=== PATIENT | male | born 1985 | race Two or more races ===

== ENCOUNTER 2024-09-30 14:31 | Inpatient (IN) | payer BC, OTHER ==
[~2024-09-30] VITALS: Ht 188 cm; Wt 172.0 kg
[2024-09-30] VITALS (27 sets, daily range): BP systolic 110–139; BP diastolic 59–89; PULSE 71–99; RESP 14–22; TEMP 97.6; O2SAT 90–98
[2024-09-30] MEDS: CLOPIDOGREL BISULFATE 75 MG TAB ONE (14:41)
[2024-09-30] MEDS: HEPARIN SODIUM (PORCINE) 5000 UNITS/ML 1ML VIAL ONE ×3 (14:41→15:43)
[2024-09-30] MEDS: CLOPIDOGREL BISULFATE 75 MG TAB PO ONE ×2 (14:44→14:45)
[2024-09-30] MEDS: HEPARIN SODIUM (PORCINE) 5000 UNITS/ML 1ML VIAL IV ONE ×2 (14:44→14:45)
[2024-09-30] MEDS: ONDANSETRON HCL 4 MG/2 ML VIAL IV ONE (14:45)
[2024-09-30] MEDS: ANGIOMAX 250 MG VIAL IV ONE (14:45)
[2024-09-30] MEDS: NITROGLYCERIN 2% OINT 1GM PKG TD ONE (14:45)
[2024-09-30] MEDS: VERAPAMIL 2.5MG/ML INJ 2ML VIAL IV ONE (14:45)
[2024-09-30] MEDS: MIDAZOLAM HCL 2MG/2ML 2ml VIAL (1mg/ml) ONE (14:46)
[2024-09-30] MEDS: LIDOCAINE 2%HCL (LOCAL ANESTH.) INJ 20ML MDV ONE (14:46)
[2024-09-30] MEDS: IODIXANOL 320MG/ML 100ML BTL IV ONE ×3 (14:46→16:06)
[2024-09-30] MEDS: SODIUM CHL 0.9% 50 ML ONE (14:46)
[2024-09-30] MEDS: fentaNYL CITRATE 100 MCG/2 ML VL ONE (14:46)
--- NOTE | 2024-09-30 14:48 | DVHINCON2 ---
Date Seen: Sep 30, 2024 Referring Physician Rosalinda Lopez MD Reason for Consultation STEMI History of Present Illness This is a 39-year-old man who presented to the emergency room via EMS with a chief complaint of chest pain since 1000 today. The patient reports he was working on his desk when he developed a sudden onset of chest pain described as substernal, nonradiating, pressure-like, and associated with diaphoresis for which he decided to present to a local urgent care clinic where EMS was called. Denies shortness of breath, palpitations, or syncopal events. EN route to the hospital, he was medicated with NTG SL 0.4 mg x4 and ASA 324 mg p.o. x 1 with successful relief of symptoms from a chest pain rated as 8/10 to 2/10. He underwent a 12 lead electrocardiogram revealing anterolateral ST elevation myocardial infarction with reciprocal changes to inferior leads. Denies any past medical history. Denies family history for cardiovascular disease. Only admits to occasional alcohol use. Past Medical History Past medical history reviewed. No other significant than mentioned above. Past Surgical History Past surgical history reviewed. No other significant than mentioned above. Family History Family history reviewed. Not significant for cardiovascular disease. Social History Denies the use of illicit drugs or tobacco use. Admits to occasional alcohol use. Home Meds Denies any home medications. Review of Systems Constitutional: No symptom reported Ears, Nose, & Throat: No symptom reported Eyes: No symptom reported Neurological: No symptoms reported Pulmonary/Respiratory: No symptom reported Cardiovascular: Chest pain, diaphoresis Gastrointestinal: No symptom reported Genitourinary: No symptom reported Musculoskeletal: No symptom reported Skin: No symptom reported Psychiatric: No symptom reported Endocrine: No symptom reported Hemotologic/Lymphatic: No symptom reported Vital Signs Vital Signs Date Time Temp Pulse Resp B/P (MAP) Pulse Ox O2 Delivery O2 Flow Rate FiO2 09/30/24 14:35 82 Physical Exam General Appearance: Cooperative. Well developed. Obese. In no acute distress Head Exam: Normal inspection Neck Exam: Normal inspection. Non-tender. Normal alignment Pulmonary/Respiratory: Chest non-tender. Clear bilateral breath sounds Cardiovascular/Chest: Regular rate and rhythm. S1, S2. Anterolateral STEMI. N o murmurs. No JVD. Peripheral Pulses: 2+ Radial (R). 2+ Radial (L). 2+ Pedal (R). 2+ Pedal (L) Abdominal Exam: Normal bowel sounds. Soft. Nontender. No hepatospenomegaly. No masses Ankle Exam: Negative ankle edema Lower extremities: Negative lower extremity edema Neuro/Mental Status: A&O x4. Coherent Thoughts/Psych: Normal thought pattern. Appropriate mood and affect. Good judgement and insight Appearance: In no acute distress Skin Exam: Normal inspection. Normal color. Warm. Dry Assessment Acute anterolateral ST-elevation myocardial infarction Rule out structural heart disease Obesity Plan/Recommendation (Dr. Lieberman) Patient with chest pain presents with an acute ST-elevation myocardial infarction with code STEMI being activated and environmental economist accounts payable representative notified. He is scheduled for emergent cardiac catheterization and coronary angiogram. All risks and benefits of the procedure were discussed with the patient who agrees to proceed with intervention. He was medicated with NTG and ASA 324 mg EN route to the hospital & loaded with heparin IV and clopidogrel 300 mg. Obtain transthoracic echocardiogram at first available. Blood work and chest x- ray pending at this time. Thank you for allowing us to participate in this patient's care. Please call if you have any questions or concerns. Critical care time: 40 minutes. This medical document was created using an electronic medical record system with voice recognition software and computerized dictation system. Although this document has been carefully reviewed, there might still be some phonetic and typographical errors. Occasional wrong-word or ``sound-alike substitutions may have occurred due to the inherent limitations of voice recognition software. These areas are purely typographical due to imperfections of the software programs and do not reflect any compromise in the patient's medical care. Please read the chart carefully and recognize, using context, where these substitutions have occurred. Plan discussed with: Patient, Other NYHA Physical activity limitations: NA Date of Service: Sep 30, 2024 Billing Provider: SUMI LIEBERMAN Sr., MD Cardiology Common Codes: 25228-ZACRGUCR CARE 30-74 MIN ENZO CORTES [facility] Sep 30, 2024 14:48
--- NOTE | 2024-09-30 14:51 | ED.PDOC ---
HPI Comments 39-year-old male with no significant past medical history brought in by EMS complaining of chest pain. Patient states he woke up this morning with nausea, generalized weakness and 8/10 chest pain. Patient presented to Urgent Care, then 911 was called. On arrival by EMS ST-elevation was noted on 12 lead EKG. Patient was medicated with aspirin 325 mg p.o. and sublingual nitroglycerin x2 improvement of his chest pain to 2/10. He denies any shortness a breath. Chief Complaint: STEMI Time Seen by MD: 14:39 Allergies: Coded Allergies: NO KNOWN ALLERGIES (Unverified , 09/30/24) Past Medical History PAST MEDICAL HISTORY: Denies Surgical History: Denies all surgeries Family History Family History: No family hx of Heart sarah Social History Smoker: Non-Smoker Alcohol: Occasionally Drugs: Denies Drug Use Lives In: Home All Other Systems: Reviewed and Negative (Comprehensive systems review obtained and negative except for what is stated in the HPI.) Physical Exam General Appearance: No Apparent Distress, Obese HEENT: Other (Pulses symmetric. Moist mucous membranes.) Neck: Full Range of Motion, Normal Inspection Respiratory: Lungs Clear, No Accessory Muscle Use, No Respiratory Distress, Normal Breath Sounds Cardiovascular: No Edema, No JVD, Regular Rate/Rhythm Breast Exam: Deferred Gastrointestinal: Non Tender, Soft Genitalia: Deferred Pelvic: Deferred Rectal: Deferred Extremities: Normal inspection, Normal range of motion, Non-tender, No pedal edema Neurologic: Alert (Oriented x4), Normal Affect, Normal Mood, Other (Moves all extremities. No gross focal deficit.) Cerebellar Function: NOT DONE Reflexes: NOT DONE Skin: Dry, Pallor, Warm Lymphatic: NOT DONE EKG EKG : Comments Sinus rhythm, rate 82, normal intervals, normal axis, ST elevation in leads 1, 2, aVL, V4 through V6 consistent with acute ST-elevation DE Was a procedure done? Was a procedure done?: No CP Differential Dx Differential Diagnosis: Angina, Heart Failure, DE, Pulmonary Embolus Differential Diagnosis: CHF Differential Diagnosis: Aortic dissection, Chest Wall Pain, Esophageal reflux/spasm, Gastritis, Pericarditis, Pneumonia, Pneumothorax X-Ray, Labs, Meds, VS Vital Signs Date Time Temp Pulse Resp B/P (MAP) Pulse Ox O2 Delivery O2 Flow Rate FiO2 09/30/24 17:00 86 19 129/89 (102) 93 09/30/24 16:30 99 14 110/59 (76) 92 09/30/24 14:45 118/91 09/30/24 14:35 82 09/30/24 14:31 74 16 96 Room Air* 0 21 09/30/24 14:31 98.4 74 16 125/70 (88) 96 09/30/24 14:31 98.4 74 16 125/70 (88) 96 98.4 Lab Test 09/30/24 14:40 Range/Units White Blood Count 12.3 H 4.4-10.8 10^3/uL Red Blood Count 5.26 4.5-5.90 10^6/uL Hemoglobin 15.7 13.5-17.5 g/dL Hematocrit 46.3 41.0-53.0 % Mean Corpuscular Volume 88.1 80.0-100.0 fL Mean Corpuscular Hemoglobin 29.8 28.0-32.0 pg Mean Corpuscular Hemoglobin Concent 33.8 32.0-36.0 g/dL Red Cell Distribution Width 13.2 11.8-14.3 % Platelet Count 305 140-450 10^3/uL Mean Platelet Volume 9.3 6.9-10.8 fL Neutrophils (%) (Auto) 85.1 H 37.0-80.0 % Lymphocytes (%) (Auto) 10.6 10.0-50.0 % Monocytes (%) (Auto) 3.8 0.0-12.0 % Eosinophils (%) (Auto) 0.1 0.0-7.0 % Basophils (%) (Auto) 0.4 0.0-2.0 % Neutrophils # (Auto) 10.5 H 1.6-8.6 10 ^3/uL Lymphocytes # (Auto) 1.3 0.4-5.4 10 ^3/uL Monocytes # (Auto) 0.5 0-1.3 10 ^3/uL Eosinophils # (Auto) 0 0-0.8 10 ^3/uL Basophils # (Auto) 0 0-0.2 10 ^3/uL Nucleated Red Blood Cells 0.1 % Prothrombin Time 11.2 9.3-11.8 sec Prothrombin Time INR 1.06 0.9-1.15 Activated Partial Thromboplast Time 25.1 24.5-34.5 SEC Sodium Level 139 136-145 mmol/L Potassium Level 4.2 3.5-5.1 mmol/L Chloride Level 105 98-107 mmol/L Carbon Dioxide Level 25 20-31 mmol/L Anion Gap 9 5-15 Blood Urea Nitrogen 11 9-23 mg/dL Creatinine 1.19 0.700-1.30 mg/dL Glomerular Filtration Rate Calc 81 >90 mL/min BUN/Creatinine Ratio 9.2 L 10.0-20.0 Serum Glucose 132 H 74-106 mg/dL Calcium Level 10.2 8.7-10.4 mg/dL Magnesium Level 1.9 1.6-2.6 mg/dL Total Bilirubin 0.6 0.2-1.0 mg/dL Aspartate Amino Transferase (AST) 46 H 13-40 U/L Alanine Aminotransferase (ALT) 39 7-40 U/L Alkaline Phosphatase 45 L 46-116 U/L Troponin I High Sensitivity 711 *H </=54 ng/L B-Type Natriuretic Peptide 22.31 0-100 pg/mL Total Protein 7.6 5.7-8.2 g/dL Albumin 4.5 3.2-4.8 g/dL Triglycerides Level 92 < 150 mg/dL Cholesterol Level 125 < 200 mg/dL LDL Cholesterol 95 < 100 mg/dL HDL Cholesterol 25 L 40-59 mg/dL Current Medications Medications (Trade) Dose Ordered Sig/Alycia Route Start Time Stop Time Status Last Admin Clopidogrel Bisulfate (Plavix) 300 mg ONCE ONCE PO 09/30/24 14:41 09/30/24 15:14 DC 09/30/24 14:44 Heparin Sodium (Porcine) 5,000 units ONCE ONCE IV 09/30/24 14:41 09/30/24 15:14 DC 09/30/24 14:44 Sodium Chloride 1,000 ml @ 75 mls/hr [id number] ONCE IV 09/30/24 16:30 10/01/24 05:49 09/30/24 16:30 X-Ray, Labs, Meds, VS Comment 39-year-old male with no significant past medical history complaining of chest pain, found to have ST-elevation DE on EKG Vitals unremarkable Exam unremarkable Rhythm strip independently interpreted by me sinus rhythm, rate 82, no ectopy. CBC, CMP, coag panel, BNP and serial troponins pending Chest x-ray pending Patient treated with the following in the ED: Nitro-Bid to chest wall, IV heparin started I discussed the case with Dr. Lieberman, who reviewed the EKG. He agreed findings are consistent with STEMI. laboratory equipment installer was activated. On re-evaluation, patient notes his chest pain is 1-2/10. Vitals are stable. Patient will be transferred to cardiac cath technician, then will be admitted. Time of 1ST Reevaluation: 14:49 Reevaluation 1ST: Improved Patient Education/Counseling: Diagnosis, Treatment, Need For Follow Up Family Education/Counseling: No Family Present Departure 1 Departure Time of Disposition: 14:50 Impression: Primary Impression: ST elevation DE (STEMI) Qualified Codes: I21.21 - ST elevation (STEMI) myocardial infarction involving left circumflex coronary artery Disposition: ADMITTED INPATIENT Admit to: [facility] Condition: Serious Critical Care Note Critical Care Time?: Yes (35 min-critical care time only) Critical care comment: Critical care time including multiple bedside re-evaluations, review of lab and imaging studies, and discussion of the case with the consulting and admitting providers. Patient is high risk for hemodynamic decompensation. Stability Stability form required: No Heart Score Heart Score: Heart Score Response (Comments) Value History Highly Suspicious [address]-Deviation 2 Age <45 0 Risk Factors No known risk factors 0 Troponin >3 x's Normal limit 2 Total 6 HYUN LUX MD Sep 30, 2024 14:51
[2024-09-30 15:13] LABS: Basophils # (auto) 0 10 ^3/uL (0-0.2); Basophils % (auto) 0.4 % (0.0-2.0); Eosinophils # (auto) 0 10 ^3/uL (0-0.8); Eosinophils % (auto) 0.1 % (0.0-7.0); Hematocrit 46.3 % (41.0-53.0); Hemoglobin 15.7 g/dL (13.5-17.5); Lymphocytes # (auto) 1.3 10 ^3/uL (0.4-5.4); Lymphocytes % (auto) 10.6 % (10.0-50.0); Mean Corpuscular Hemoglobin 29.8 pg (28.0-32.0); Mean Corpuscular Hgb Conc. 33.8 g/dL (32.0-36.0); Mean Corpuscular Volume 88.1 fL (80.0-100.0); Monocytes # (auto) 0.5 10 ^3/uL (0-1.3); Monocytes % (auto) 3.8 % (0.0-12.0); Neutrophils # (auto) 10.5 10 ^3/uL (1.6-8.6); Neutrophils % (auto) 85.1 % (37.0-80.0); Nucleated Red Blood Cells % 0.1 %; Platelet Count (auto) 305 10^3/uL (140-450); Red Blood Cells 5.26 10^6/uL (4.5-5.90); Red Cell Distribution Width 13.2 % (11.8-14.3); White Blood Cell 12.3 10^3/uL (4.4-10.8)
[2024-09-30 15:21] LABS: Alanine Aminotransferase 39 U/L (7-40); Albumin 4.5 g/dL (3.2-4.8); Anion Gap 9 (5-15); BUN/Creatinine Ratio 9.2 (10.0-20.0); Blood Urea Nitrogen 11 mg/dL (9-23); Calcium 10.2 mg/dL (8.7-10.4); Carbon Dioxide 25 mmol/L (20-31); Chloride 105 mmol/L (98-107); Magnesium 1.9 mg/dL (1.6-2.6); Potassium 4.2 mmol/L (3.5-5.1); Sodium 139 mmol/L (136-145)
[2024-09-30 15:22] LABS: Bilirubin, Total 0.6 mg/dL (0.2-1.0); Total Protein 7.6 g/dL (5.7-8.2)
[2024-09-30] MEDS: HYDROmorphone HCL 2 MG/ML VL/or syr ONE (15:24)
[2024-09-30 15:30] LABS: Alkaline Phosphatase 45 U/L (46-116); Aspartate Aminotransferase 46 U/L (13-40); Glucose 132 mg/dL (74-106)
[2024-09-30 15:32] LABS: INR 1.06 (0.9-1.15); Partial Thromboplastin Time 25.1 SEC (24.5-34.5); Prothrombin Time 11.2 sec (9.3-11.8)
[2024-09-30] MEDS: EPTIFIBATIDE DRIP(0.75MG/ML) 100 ML IV ONE ×3 (15:36→19:50)
[2024-09-30 15:55] LABS: Triglycerides 92 mg/dL (< 150)
[2024-09-30 15:56] LABS: LDL Cholesterol 95 mg/dL (< 100)
[2024-09-30 15:57] LABS: Cholesterol 125 mg/dL (< 200)
[2024-09-30 16:08] LABS: HDL Cholesterol 25 mg/dL (40-59)
[2024-09-30] MEDS ORDERED: MORPHINE SULFATE INJ 2 MG/ml SYRG IV PRN ×2 (16:30→17:15)
[2024-09-30] MEDS: SODIUM CHLORIDE 0.9% 1,000 ML IV ONE (16:30)
[2024-09-30] MEDS ORDERED: NITROGLYCERIN 0.4 MG SL TAB SL PRN ×3 (16:30→17:15)
--- NOTE | 2024-09-30 16:53 | DVHOP2 ---
Operative Report - 2 Report Details Date: 09/30/24 Preop Diagnosis: Acute ST-elevation myocardial infarction Postop Diagnosis: Acute ST-elevation myocardial infarction. Successful angioplasty, thrombectomy and stenting of the LAD. Surgeon: Sumi Lieberman MD Anesthesiologist: Conscious sedation Anesthesia: Mac, Local Consent: The patient was informed of the risks and benefits of the procedure. These include but are not limited to complications of anesthesia, postoperative infection, incomplete relief of symptoms, recurrence of symptoms, damage to blood vessels, nerves and tendons, deep venous thrombosis, pulmonary embolism and possible need for repeat surgery in the future. Complications: No complications Estimated Blood Loss: 50 cc Findings: Significant thrombosis of left anterior descending coronary artery Indications for Surgery: Acute ST-elevation myocardial infarction Name of Procedure Performed Left heart catheterization, bilateral cine coronary angiography and left v entriculography. Thrombectomy of left anterior descending coronary artery. Intravascular ultrasound evaluation of left anterior descending coronary artery. Thrombectomy of diagonal artery. PTCA and stenting of left anterior descending coronary artery. Procedure Details Procedure Details: Prior local anesthesia with 2% lidocaine to the right wrist and under ultrasound guidance along with fluoroscopic guidance we accessed the radial artery and placed a six Turkish sheath subsequent to which we then placed a three five EBU guide into the left ventricle for ventriculography and acquisition of pressures. We performed angiographic evaluation of the left main and RCA. Hemodynamics: Aortic blood pressure was 110/70. End-diastolic pressure was 18. There was no gradient across the aortic valve on pullback. Coronary anatomy: Angiographic evaluation of the RCA showed no significant lesions. PDA and posterolateral branches were normal. Left main was large and normal. The circ umflex is large with two marginals free of significant disease. Is codominant and normal the LAD was found to be occluded in its proximal segment several mm from the origin and edge of the left main. We proceeded to use the same three five EBU followed by placement of a Specter wire across the area of stenosis in the left anterior descending coronary artery. The wire was preferentially in the diagonal and we noticed a significant amount of thrombus present. We made several runs removing large amounts of thrombus re-establishing flow into the diagonal artery and noticed severe thrombus also adjacent in the left anterior descending. We redirected our wire into the left anterior descending coronary artery and we then took two more passes with the penumbra thrombectomy device. We noticed a significant dissection in the left anterior descending coronary artery with a ruptured plaque distal to the large diagonal. It was normal with the to state that the left anterior descending was occluded to the proximal segment from thrombus extending from the mid LAD and diagonal RV to the proximal segment. We then performed an intravascular ultrasound evaluation of the left anterior descending coronary artery noted the segment of ruptured plaque and significant plaque bu rden within the LAD at its mid and proximal portions. We then placed a three 5 x 22 mm stent into the LAD just distal to the diagonal bifurcation. We found that there was plaque shift distal to the stent and we placed a 3-0 by 8 mm stent overlapping the proximal stent. We post dilated with a same 3-0 balloon at higher atmospheres overlapping the two stents segments. We then took a four 0 x 15 mm noncompliant balloon and dilated proximal to the distal stent at approximately 10 atmospheres. Into the proximal stent up to 15 atmospheres. There was excellent antegrade flow without thrombus formation or dissection. CHRIS two flow is noted postprocedure. Preprocedure there was CHRIS one flow noted. The diagonals improved to acquired improved flow as well. In tegrilin was continued in its use. Ventriculography was performed in the [place] projection. EF was about 25% with an enlarged left ventricle and anterior hypokinesis. Catheter stimulation upon the septum cause of ventricular fibrillation. The patient had DC cardioversion x1 this was uneventful. Impression: Successful PTCA and stenting in the patient with single-vessel disease. Successful thrombectomy and intravascular ultrasound evaluation of left anterior descending and diagonal vasculature. Decreased left ventricular ejection fraction. Elevated left ventricular end-diastolic pressure at rest. Recommendations: Continue dual antiplatelet therapy. Lipid-lowering therapy. ELVER inhibitors. Beta blockers. Dietary risk factor modification. We will cont inue with Integrilin for another 8 hours. Condition Good Disposition Still a Patient Date of Service: Sep 30, 2024 Billing Provider: SUMI LIEBERMAN Sr., MD Cardiology Common Codes: 06911-[id number] INP/OBS CARE (High) Cardiology Procedure Codes: 33869 -PTCA W/STENT PLACEMENT, 23270-APSA FOR STEMI W/STENT, 23228-ON CARDIOVERSION, 88864-VWLJ HEART CATH W/INTRA INJ, 40668-V/R & L HEART CATH FOR LVG SUMI LIEBERMAN Sr., MD Sep 30, 2024 16:53
[2024-09-30] MEDS ORDERED: MORPHINE SULFATE 4 MG/ML SYR/VIAL IV PRN (17:15)
[2024-09-30] MEDS ORDERED: ONDANSETRON HCL 4 MG/2 ML VIAL IV PRN (17:15)
[2024-09-30] MEDS ORDERED: ACETAMINOPHEN 325 MG TAB PO PRN (17:15)
--- NOTE | 2024-09-30 17:43 | DVHHP2 ---
History of Present Illness Reason for Visit: STEMI History of Present Illness Dre Khalil is a 39-year-old male with no past medical history who presents to the ED with a STEMI. Patient reports that he was at work at 10:00 a.m. this morning felt very diaphoretic took some water drove home about an hour away and try to get some sleep however the pain was still persisting. He states that he and his went to [facility] they did an EKG and found that he had a STEMI call paramedics they brought him to [facility] and was also found to have a STEMI in the ED. Patient was taken to cath lab radiological technologist and 2 stents were placed in the LAD. Patient reports that in 2017 he tore his calf muscle and developed a right DVT was on Eliquis for 9 months and then got lab draws every month along with ultrasound, then his primary stopped his medications as patient stated that primary stated he no longer needed them. Patient denies any fevers, chills, recent sick contacts, recent trauma or injury, denies illicit drug use, smoking, nausea, vomiting, diarrhea, lightheadedness, and dizziness. Past Medical History Right lower extremity DVT Past Surgical History: None Family History: Hypertension, Other (Mom with hypertension) Smoke: No ALCOHOL: occassional Drugs: None Lives: with Family Domestic Violence: Neg Review of Systems Constitutional: No: Fever, Chills, Sweats, Weakness, Malaise, Other Eyes: No: Pain, Vision change, Conjunctivae inflammation, Eyelid inflammation, Other, Redness ENT: No: Ear pain, Ear discharge, Nose pain, Nose discharge, Nose congestion, Mouth pain, Mouth swelling, Throat pain, Throat swelling, Other Respiratory: Cough; No: Dry, Shortness of breath, SOB with excertion, Wheezing, Hemoptysis, Pleuritic Pain, Sputum, Wheezing, Other Cardiovascular: Chest Pain; No: Palpitations, Orthopnea, Paroxysmal Noc. Dyspnea, Edema, Lt Headedness, Other Gastrointestinal: No: Nausea, Vomiting, Abdominal Pain, Diarrhea, Constipation, Melena, Hematochezia, Other Genitourinary: No Dysuria, No Frequency, No Incontinence, No Hematuria, No Retention, No Other Musculoskeletal: No: other, neck pain, shoulder pain, arm pain, back pain, hand pain, leg pain, foot pain Skin: No: Rash, Lesions, Jaundice, Bruising, Other Neurological: No: Weakness, Numbness, Incoordination, Change in speech, Confusion, Seizures, Other Allergies: Coded Allergies: NO KNOWN ALLERGIES (Unverified , 09/30/24) Medications Current Medications Medications Dose Ordered Sig/Alycia Route Start Time Stop Time Status Last Admin Dose Admin Nitroglycerin 0.4 mg Q5MINP PRN SL 09/30/24 16:30 Morphine Sulfate 2 mg Q30M PRN IV 09/30/24 16:30 Aspirin 81 mg DAILY PO 10/01/24 10:00 UNV Clopidogrel Bisulfate 75 mg DAILY PO 10/01/24 10:00 UNV Metoprolol Tartrate 12.5 mg BID PO 09/30/24 22:00 UNV Morphine Sulfate 2 mg Q30MP PRN IV 09/30/24 17:15 UNV Acetaminophen 650 mg Q6HP PRN PO 09/30/24 17:15 UNV Nitroglycerin 0.4 mg Q5MINP PRN SL 09/30/24 17:15 UNV Ondansetron HCl 4 mg Q4HP PRN IV 09/30/24 17:15 UNV Nitroglycerin 0.4 mg Q5MINP PRN SL 09/30/24 17:15 UNV Morphine Sulfate 2 mg Q30M PRN IV 09/30/24 17:15 UNV Spironolactone 25 mg DAILY PO 10/01/24 10:00 UNV Sacubitril/ Valsartan 0.5 tab BID PO 09/30/24 22:00 UNV Exam Vital Signs Vital Signs Date Time Temp Pulse Resp B/P (MAP) Pulse Ox O2 Delivery O2 Flow Rate FiO2 09/30/24 14:35 82 09/30/24 14:31 16 96 Room Air* 0 21 09/30/24 14:31 98.4 125/70 (88) General Appearance: Alert, Oriented X3, Cooperative, No acute distress HEENT: Atraumatic, PERRLA, EOMI, Mucous membr. moist/pink Respiratory: Clear to auscultation, Normal air movement Cardiovascular: Normal S1, Normal S2, No murmurs Abdominal: Soft, No tenderness Extremities: No clubbing, No cyanosis, No edema, Normal pulses, No tenderness/swelling Skin: No rashes, No breakdown, No significant lesion Neuro: Normal speech, Strength at 5/5 X4 ext, Normal tone, Sensation intact Psych/Mental Status: Mental status NL, Mood NL Labs/Xrays Labs Test 09/30/24 14:40 Range/Units White Blood Count 12.3 H 4.4-10.8 10^3/uL Red Blood Count 5.26 4.5-5.90 10^6/uL Hemoglobin 15.7 13.5-17.5 g/dL Hematocrit 46.3 41.0-53.0 % Mean Corpuscular Volume 88.1 80.0-100.0 fL Mean Corpuscular Hemoglobin 29.8 28.0-32.0 pg Mean Corpuscular Hemoglobin Concent 33.8 32.0-36.0 g/dL Red Cell Distribution Width 13.2 11.8-14.3 % Platelet Count 305 140-450 10^3/uL Mean Platelet Volume 9.3 6.9-10.8 fL Neutrophils (%) (Auto) 85.1 H 37.0-80.0 % Lymphocytes (%) (Auto) 10.6 10.0-50.0 % Monocytes (%) (Auto) 3.8 0.0-12.0 % Eosinophils (%) (Auto) 0.1 0.0-7.0 % Basophils (%) (Auto) 0.4 0.0-2.0 % Neutrophils # (Auto) 10.5 H 1.6-8.6 10 ^3/uL Lymphocytes # (Auto) 1.3 0.4-5.4 10 ^3/uL Monocytes # (Auto) 0.5 0-1.3 10 ^3/uL Eosinophils # (Auto) 0 0-0.8 10 ^3/uL Basophils # (Auto) 0 0-0.2 10 ^3/uL Nucleated Red Blood Cells 0.1 % Prothrombin Time 11.2 9.3-11.8 sec Prothrombin Time INR 1.06 0.9-1.15 Activated Partial Thromboplast Time 25.1 24.5-34.5 SEC Sodium Level 139 136-145 mmol/L Potassium Level 4.2 3.5-5.1 mmol/L Chloride Level 105 98-107 mmol/L Carbon Dioxide Level 25 20-31 mmol/L Anion Gap 9 5-15 Blood Urea Nitrogen 11 9-23 mg/dL Creatinine 1.19 0.700-1.30 mg/dL Glomerular Filtration Rate Calc 81 >90 mL/min BUN/Creatinine Ratio 9.2 L 10.0-20.0 Serum Glucose 132 H 74-106 mg/dL Calcium Level 10.2 8.7-10.4 mg/dL Magnesium Level 1.9 1.6-2.6 mg/dL Total Bilirubin 0.6 0.2-1.0 mg/dL Aspartate Amino Transferase (AST) 46 H 13-40 U/L Alanine Aminotransferase (ALT) 39 7-40 U/L Alkaline Phosphatase 45 L 46-116 U/L Troponin I High Sensitivity 711 *H </=54 ng/L B-Type Natriuretic Peptide 22.31 0-100 pg/mL Total Protein 7.6 5.7-8.2 g/dL Albumin 4.5 3.2-4.8 g/dL Triglycerides Level 92 < 150 mg/dL Cholesterol Level 125 < 200 mg/dL LDL Cholesterol 95 < 100 mg/dL HDL Cholesterol 25 L 40-59 mg/dL Assessment/Plan Assessment/Plan Assessment/Plan: STEMI Leukocytosis Integrilin drip EKG Cardiology following EKG in a.m. Chest x-ray in a.m. Labs Labs in a.m. Troponin Albumin BNP Lipid panel PT/PTT IV antibiotics - ceftriaxone Spironolactone Plavix Aspirin Entresto Metoprolol Pain management Antiemetics Heparin History of right lower extremity DVT Monitor Morbid Obesity Discussed with patient lifestyle modifications, diet, and exercise FEN/PPX cardiac diet hl DVT prophylaxis - patient on Integrilin drip PD prophylaxis not indicated no history of GERD or GI bleed No home medications to reconcile discussed plan of care with patient, and nurse Admit to ICU Plan discussed with: Patient, Spouse My Orders Orders - CAYLA RANDLE Procedure Category Date Status Time Admit ADMIT 09/30/24 Transmitted 17:10 Code Status CODE 09/30/24 Transmitted 17:10 Vital Signs TERRI 09/30/24 In Process 17:10 Terminal Gauger Supervisor TERRI 09/30/24 In Process 17:10 Morphine Sulfate PHA 09/30/24 Logged Injection 17:15 Acetaminophen Tablet PHA 09/30/24 Logged (Tylenol Tablet) 17:15 Complete Blood Count LAB 10/01/24 Verified 04:00 Comprehensive LAB 10/01/24 Verified Metabolic Panel 04:00 Chest Xray 1 View XY 10/01/24 Logged 06:00 Nitroglycerin PHA 09/30/24 Logged Sublingual (Ntrostat 17:15 Ondansetron Hcl PHA 09/30/24 Logged (Zofran) 17:15 Electrocardigram EKG 10/01/24 Logged 04:00 Troponin-I Hs LAB 09/30/24 Logged 17:10 Cardiac TERRI 09/30/24 In Process Rehabilitation - Outpa Nitroglycerin PHA 09/30/24 Logged Sublingual (Ntrostat 17:15 Morphine Sulfate PHA 09/30/24 Logged Injection 17:15 Oxygen By Nasal RT 09/30/24 Transmitted Cannula 17:10 Date of Service: Sep 30, 2024 Billing Provider: CAYLA RANDLE Common Visit Codes: [id number] INP/OBS CARE (HIGH) CAYLA RANDLE Sep 30, 2024 17:43
[2024-09-30 19:33] LABS: Triglycerides 131 mg/dL (< 150)
[2024-09-30 19:35] LABS: Cholesterol 131 mg/dL (< 200)
[2024-09-30 19:38] LABS: HDL Cholesterol 26 mg/dL (40-59); LDL Cholesterol 100 mg/dL (< 100)
--- NOTE | 2024-09-30 20:02 | DVH ---
CHEST RADIOGRAPH Indication: cp Technique: Single frontal view of the chest was obtained Comparison: None FINDINGS: Lines and Tubes: No catheter is visualized. Lungs: No focal consolidation. Pleura: No effusion. No pneumothorax. Cardiomediastinal contours: Unremarkable Bones: No acute osseous abnormality. IMPRESSION: 1. No acute cardiopulmonary disease. 2. No catheter is visualized. 3. No pneumothorax visualized.
[2024-09-30] MEDS: cefTRIAXone 1GM/50ML D5W 50 ML IV ONE (20:50)
[2024-09-30] MEDS: SACUBITRIL-VALSARTAN 24mg/26mg TAB PO SCH (21:54)
[2024-09-30] MEDS: METOPROLOL TARTRATE 25 MG TAB PO SCH (21:54)
[2024-10-01] VITALS (34 sets, daily range): BP systolic 103–160; BP diastolic 7–91; PULSE 66–98; RESP 15–20; TEMP 98.1–99.2; O2SAT 84–99
[2024-10-01 00:44] LABS: Chloride 105 mmol/L (98-107); Potassium 4.3 mmol/L (3.5-5.1); Sodium 137 mmol/L (136-145)
[2024-10-01 00:45] LABS: Anion Gap 10 (5-15); Carbon Dioxide 22 mmol/L (20-31)
[2024-10-01 00:50] LABS: BUN/Creatinine Ratio 12.1 (10.0-20.0); Blood Urea Nitrogen 12 mg/dL (9-23)
[2024-10-01 00:57] LABS: Glucose 140 mg/dL (74-106)
[2024-10-01 03:59] LABS: Basophils # (auto) 0.1 10 ^3/uL (0-0.2); Basophils % (auto) 0.4 % (0.0-2.0); Eosinophils # (auto) 0 10 ^3/uL (0-0.8); Hematocrit 43.9 % (41.0-53.0); Lymphocytes # (auto) 1.5 10 ^3/uL (0.4-5.4); Lymphocytes % (auto) 11.3 % (10.0-50.0); Mean Corpuscular Hemoglobin 29.8 pg (28.0-32.0); Mean Corpuscular Hgb Conc. 34.1 g/dL (32.0-36.0); Mean Corpuscular Volume 87.3 fL (80.0-100.0); Monocytes % (auto) 7.4 % (0.0-12.0); Neutrophils # (auto) 10.6 10 ^3/uL (1.6-8.6); Neutrophils % (auto) 80.9 % (37.0-80.0); Platelet Count (auto) 249 10^3/uL (140-450); Red Blood Cells 5.03 10^6/uL (4.5-5.90); White Blood Cell 13.1 10^3/uL (4.4-10.8)
[2024-10-01 04:18] LABS: Alanine Aminotransferase 106 U/L (7-40); Albumin 4.1 g/dL (3.2-4.8); Alkaline Phosphatase 41 U/L (46-116); Anion Gap 9 (5-15); Aspartate Aminotransferase 639 U/L (13-40); Bilirubin, Total 0.8 mg/dL (0.2-1.0); Blood Urea Nitrogen 11 mg/dL (9-23); Calcium 9.5 mg/dL (8.7-10.4); Carbon Dioxide 24 mmol/L (20-31); Chloride 105 mmol/L (98-107); Glucose 125 mg/dL (74-106); Potassium 4.1 mmol/L (3.5-5.1); Sodium 138 mmol/L (136-145); Total Protein 7.1 g/dL (5.7-8.2)
--- NOTE | 2024-10-01 04:30 | DVH ---
CHEST RADIOGRAPH Indication: Chest Pain Technique: Single frontal view of the chest was obtained Comparison: XY CHEST PORTABLE on DOS: 09/30/24 FINDINGS: Lines and Tubes: None Lungs: No focal consolidation. Pleura: No effusion. No pneumothorax. Cardiomediastinal contours: Unremarkable Bones: No acute osseous abnormality. IMPRESSION: 1. No acute cardiopulmonary disease.
[2024-10-01] MEDS: ASPirin 81 mg TAB PO SCH (09:03)
[2024-10-01] MEDS: cefTRIAXone 1GM/50ML D5W 50 ML IV SCH (09:03)
[2024-10-01] MEDS: SPIRONOLACTONE 25 MG TAB PO SCH (09:03)
[2024-10-01] MEDS: CLOPIDOGREL BISULFATE 75 MG TAB PO SCH (09:06)
--- NOTE | 2024-10-01 09:10 | DVHPN2 ---
Progress Note Date Seen: Oct 01, 2024 Medical Necessity Reason Pt with a Central, PICC or Fol: No Subjective Patient reports: No new complaints Review of Systems: HEENT:Normal, CVS:Normal, RESPIRATORY:Normal Objective vital signs Vital Sign Date Time Temp Pulse Resp B/P (MAP) Pulse Ox O2 Delivery O2 Flow Rate FiO2 10/01/24 08:10 99.2 78 20 142/69 (93) 93 99.2 10/01/24 06:00 Nasal Cannula* 2 28 Total Intake and Output 09/30/24 09/30/24 10/01/24 15:00 23:00 07:00 Intake Total 775 ml 770 ml Output Total 700 ml Balance 775 ml 70 ml medications Current Medications Medications Dose Ordered Sig/Alycia Route Start Time Stop Time Status Last Admin Dose Admin Nitroglycerin 0.4 mg Q5MINP PRN SL 09/30/24 16:30 Aspirin 81 mg DAILY PO 10/01/24 10:00 Clopidogrel Bisulfate 75 mg DAILY PO 10/01/24 10:00 Metoprolol Tartrate 12.5 mg BID PO 09/30/24 22:00 09/30/24 21:54 12.5 MG Morphine Sulfate 2 mg Q30MP PRN IV 09/30/24 17:15 Acetaminophen 650 mg Q6HP PRN PO 09/30/24 17:15 Nitroglycerin 0.4 mg Q5MINP PRN SL 09/30/24 17:15 Ondansetron HCl 4 mg Q4HP PRN IV 09/30/24 17:15 Nitroglycerin 0.4 mg Q5MINP PRN SL 09/30/24 17:15 UNV Spironolactone 25 mg DAILY PO 10/01/24 10:00 Sacubitril/ Valsartan 0.5 tab BID PO 09/30/24 22:00 09/30/24 21:54 0.5 TAB Ceftriaxone Sodium 50 ml @ 100 mls/hr DAILY@09 IV 10/01/24 09:00 Examination: GENERAL:Normal, LUNGS:Normal, CVS:Normal, ABDOMEN:Normal laboratory and microbiology Laboratory Tests 10/01/24 03:41 Test 10/01/24 03:41 Range/Units Serum Glucose 125 H 74-106 mg/dL Problem List/Assessment/Plan Problem List/Assessment/Plan 1) STEMI s/p PTCA and PCI x1 to LAD 2) HFrEF 30% 3) Obesity plan; s/p PTCA and PCI x1 to LAD yesterday, on dual antiplatelets and guideline directed heart failure meds ie BB, entresto, aldactone, EF 30% per cardio dr figueroa, recommended by cardio to monitor overnight and will reevaluate in AM for discharge, AM labs, supportive care, cardiology input appreciated Plan discussed with: Other TEN CRUZ MD Oct 01, 2024 09:09
--- NOTE | 2024-10-01 10:25 | DVHPN2 ---
Consult Progress Note Date Seen: Oct 01, 2024 Subjective Review of Systems: CVS:Normal, RESPIRATORY:Normal, NEURO:Normal Other Systems: C/o pleuritic chest pain. Otherwise cardiac stable Objective vital signs Vital Sign Date Time Temp Pulse Resp B/P (MAP) Pulse Ox O2 Delivery O2 Flow Rate FiO2 10/01/24 09:09 83 110/67 10/01/24 08:10 99.2 20 93 99.2 10/01/24 06:00 Nasal Cannula* 2 28 Total Intake and Output 09/30/24 09/30/24 10/01/24 15:00 23:00 07:00 Intake Total 775 ml 770 ml Output Total 700 ml Balance 775 ml 70 ml medications Current Medications Medications Dose Ordered Sig/Alycia Route Start Time Stop Time Status Last Admin Dose Admin Nitroglycerin 0.4 mg Q5MINP PRN SL 09/30/24 16:30 Aspirin 81 mg DAILY PO 10/01/24 10:00 10/01/24 09:03 81 MG Clopidogrel Bisulfate 75 mg DAILY PO 10/01/24 10:00 10/01/24 09:06 75 MG Metoprolol Tartrate 12.5 mg BID PO 09/30/24 22:00 10/01/24 09:09 12.5 MG Morphine Sulfate 2 mg Q30MP PRN IV 09/30/24 17:15 Acetaminophen 650 mg Q6HP PRN PO 09/30/24 17:15 Nitroglycerin 0.4 mg Q5MINP PRN SL 09/30/24 17:15 Ondansetron HCl 4 mg Q4HP PRN IV 09/30/24 17:15 Nitroglycerin 0.4 mg Q5MINP PRN SL 09/30/24 17:15 UNV Spironolactone 25 mg DAILY PO 10/01/24 10:00 10/01/24 09:03 25 MG Sacubitril/ Valsartan 0.5 tab BID PO 09/30/24 22:00 10/01/24 09:04 0.5 TAB Ceftriaxone Sodium 50 ml @ 100 mls/hr DAILY@09 IV 10/01/24 09:00 10/01/24 09:03 100 MLS/HR Examination: GENERAL:Abnormal (Morbidly obese), LUNGS:Normal, CVS:Normal, NEURO:Normal laboratory and microbiology Laboratory Tests 10/01/24 03:41 Test 10/01/24 03:41 Range/Units Serum Glucose 125 H 74-106 mg/dL Problem List/Assessment/Plan Problem List/Assessment/Plan Acute anterior ST-elevation myocardial infarction Ischemic cardiomyopathy with LVEF of 25% Acute compensated HFrEF Hypertension, newly diagnosed Dyslipidemia, newly diagnosed Elevated LFTs Hx RLE DVT with Eliquis therapy x 9 mos in 2017 Morbid obesity Plan/Recommendation (Dr. Buitrago) Patient seen and evaluated by Dr. Buitrago. Patient with chest pain presented with an acute ST-elevation myocardial infarction undergoing emergent cardiac catheterization and coronary angiogram and successful angioplasty, thrombectomy, and stenting of the LAD. At high-risk for contrast induced nephropathy given intraprocedural contrast amount. We will monitor renal function for 24 hr and continue with a transthoracic echocardiogram at first available. Ventriculography revealed EF 25% for which patient will be initiated on GDMT for CHF. Continue DAPT with Plavix and initiate statin, monitor LFTs. HgbA1C level pending. Thank you for allowing us to participate in this patient's care. Please call if you have any questions or concerns. Critical care time: 40 minutes. This medical document was created using an electronic medical record system with voice recognition software and computerized dictation system. Although this document has been carefully reviewed, there might still be some phonetic and typographical errors. Occasional wrong-word or ``sound-alike substitutions may have occurred due to the inherent limitations of voice recognition software. These areas are purely typographical due to imperfections of the software programs and do not reflect any compromise in the patient's medical care. Please read the chart carefully and recognize, using context, where these substitutions have occurred. Plan discussed with: Patient, Other Date of Service: Oct 01, 2024 Billing Provider: SHOAIB BUITRAGO MD Cardiology Common Codes: [id number] HOSP CARE(ENZO Jim[facility]nez [facility] Oct 01, 2024 10:25
--- NOTE | 2024-10-01 10:54 | DVHPN2 ---
Consult Progress Note Date Seen: Oct 01, 2024 Subjective Patient reports: Feels better Review of Systems: HEENT:Abnormal, CVS:Abnormal, RESPIRATORY:Normal, GI:Normal, :Normal, MSK:Normal, NEURO:Normal Objective vital signs Vital Sign Date Time Temp Pulse Resp B/P (MAP) Pulse Ox O2 Delivery O2 Flow Rate FiO2 10/01/24 10:00 Room Air* 0 21 10/01/24 09:09 83 110/67 10/01/24 08:10 99.2 20 93 99.2 Total Intake and Output 09/30/24 09/30/24 10/01/24 15:00 23:00 07:00 Intake Total 775 ml 770 ml Output Total 700 ml Balance 775 ml 70 ml medications Current Medications Medications Dose Ordered Sig/Alycia Route Start Time Stop Time Status Last Admin Dose Admin Nitroglycerin 0.4 mg Q5MINP PRN SL 09/30/24 16:30 Aspirin 81 mg DAILY PO 10/01/24 10:00 10/01/24 09:03 81 MG Clopidogrel Bisulfate 75 mg DAILY PO 10/01/24 10:00 10/01/24 09:06 75 MG Metoprolol Tartrate 12.5 mg BID PO 09/30/24 22:00 10/01/24 09:09 12.5 MG Morphine Sulfate 2 mg Q30MP PRN IV 09/30/24 17:15 Acetaminophen 650 mg Q6HP PRN PO 09/30/24 17:15 Nitroglycerin 0.4 mg Q5MINP PRN SL 09/30/24 17:15 Ondansetron HCl 4 mg Q4HP PRN IV 09/30/24 17:15 Nitroglycerin 0.4 mg Q5MINP PRN SL 09/30/24 17:15 UNV Spironolactone 25 mg DAILY PO 10/01/24 10:00 10/01/24 09:03 25 MG Sacubitril/ Valsartan 0.5 tab BID PO 09/30/24 22:00 10/01/24 09:04 0.5 TAB Ceftriaxone Sodium 50 ml @ 100 mls/hr DAILY@09 IV 10/01/24 09:00 10/01/24 09:03 100 MLS/HR Empaglifozin 10 mg DAILY PO 10/02/24 10:00 Atorvastatin Calcium 40 mg HS PO 10/01/24 22:00 Examination: GENERAL:Normal, HEENT:Normal, NECK:Normal, LUNGS:Normal, CVS:Abnormal (Soft S4.), ABDOMEN:Normal, MSK:Normal, SKIN:Normal, NEURO:Normal, :Normal laboratory and microbiology Laboratory Tests 10/01/24 03:41 Test 10/01/24 03:41 Range/Units Serum Glucose 125 H 74-106 mg/dL Problem List/Assessment/Plan Problem List/Assessment/Plan Status post myocardial infarction. Status post stenting of left anterior descending coronary artery. Echocardiographic findings suggest moderate hypokinesis of anterior wall. EF improved. EF of approximately 35% We will recommend patient stay another 24 hours. Repeat CMP given contrast load. Decreased ejection fraction. Discussed with primary care physician. Outpatient follow up. Plan discussed with: Patient, Spouse Date of Service: Oct 01, 2024 Billing Provider: SUMI ESCOBAR Sr., MD Cardiology Common Codes: [id number] INP/OBS CARE(Mod) SUMI ESCOBAR Sr., MD Oct 01, 2024 10:54
--- NOTE | 2024-10-01 10:57 | DVH ---
Bilateral lower extremity venous duplex Clinical History: Pain with hx of DVT Comparison: None Technique: Duplex Doppler evaluation of the deep venous systems of both lower extremities from the common femora l veins to the popliteal veins including color Doppler and spectral/pulsed waveform analysis was perf ormed. Findings: RIGHT SIDE: The common femoral vein demonstrates appropriate compressibility and waveform variability. There is compressibility/patency of the great saphenous vein at the proximal thigh. The femoral vein demonstrates appropriate compressibility and waveform variability. The deep femoral vein demonstrates appropriate compressibility and waveform variability. The popliteal vein demonstrates appropriate compressibility and waveform variability. There is normal compressibility at the tibioperoneal trunk. LEFT SIDE: The common femoral vein demonstrates appropriate compressibility and waveform variability. There is compressibility/patency of the great saphenous vein at the proximal thigh. The femoral vein demonstrates appropriate compressibility and waveform variability. The deep femoral vein demonstrates appropriate compressibility and waveform variability. The popliteal vein demonstrates appropriate compressibility and waveform variability. There is normal compressibility at the tibioperoneal trunk. Impression: 1. No right or left femoropopliteal venous thrombosis. HS:Y
[2024-10-01] MEDS: EMPAGLIFLOZIN 10 MG TAB PO ONE (13:11)
--- NOTE | 2024-10-01 14:06 | DVHSR ---
APPROVED REPORT EXAM: Two-dimensional and M-mode echocardiogram with Doppler and color Doppler. Blood Pressure: 110/67 mmHg INDICATION STEMI RISK FACTORS Obesity: Height: 6'2", Weight: 379 DIMENSIONS LVDd5.4 (3.8-5.7cm)LA (2D)3.8 (1.9-4.0cm)Aortic Root (2.0-3.7cm) LVDs4.4 (2.5-4.0cm)LA (MM) (1.9-4.0cm)Aortic Cusp Exc (1.5-2.0cm) EF (%) 35.0 (55-70%)Rt. Atrium4.0 (1.9-4.0cm)Asc. Aorta cm IVSd1.1 (0.7-1.1cm)RV (D)3.5 (1.8-2.4cm) Mitral Valve MitralMitral Stenosis E wave0.63m/sMV Mean GR.mmHg A wave0.66m/sMV Peak GR.mmHg E/A ratio1.02D MVAcm2 DECEL [id number] 1/2 Timems Aortic Valve Aortic ValveAortic Stenosis V10.88m/Mark Mean GR.3mmHg V21.13m/Mark Peak GR.5mmHg LVOT Diameter3.0 (1.8-2.4cm)Doppler AVA5.50cm2 Pulmonic Valve V20.92m/s LEFT VENTRICLE Left ventricle is of normal size. Wall thickness is normal. Ejection fraction is estimated at 30-35 %. There is severe hypokinesis of the mid to distal anteroseptal wall, anterior wall, and LV apex. Diastolic function is preserved. E to E prime ratio is in the normal range. RIGHT VENTRICLE The right ventricle is of normal size and systolic function. ATRIA Both atria are of normal size. Not well visualized. MITRAL VALVE Normal structure and function. There is mild mitral regurgitation. PULMONIC VALVE Likely normal. TRICUSPID VALVE Normal structure and function. There is trace tricuspid regurgitation. PA systolic pressure is not adequately estimated. AORTIC VALVE Normal structure and function. GREAT VESSELS The aortic root is of normal size. Proximal ascending aorta is not well visualized. PERICARDIAL EFFUSION No pericardial effusion. IVC is dilated in size. It collapses more than 50% with inspiration. Other Information Quality : Technically LimitedRhythm : Technically limited study due to body habitus. Conclusion Normal left ventricular size with an ejection fraction of 30-35%. Severe hypokinesis in the LAD territory as described above. Normal right ventricular size and systolic function. No hemodynamically significant valvular disease.
--- NOTE | 2024-10-01 14:33 | ECG ---
[facility] Test Date: 2024-09-30 Test Time: 14:35:04 Pat Name: BURT AKERS Department: ER Room: 0247T B Gender: M [employer] Tool Maker: TIANA : 1985 Requested By: HYUN HERNANDEZ Order Number: [id number] Reading MD: Geovany Lieberman Measurements Intervals Conley Rate: 82 P: 0 FL: 0 QRS: 47 QRSD: 107 T: 12 QT: 400 QTc: 468 Interpretive Statements Atrial fibrillation Inferior infarct, acute (LCx) Anteroseptal infarct, old Lateral leads are also involved Baseline wander in lead(s) V1,V2 Electronically Signed On 10-02-2024 10:20:13 PST by Geovany Lieberman Please click the below link to view image of tracing.
[2024-10-01] MEDS: ATORVASTATIN 20 MG TAB PO SCH (21:25)
[2024-10-02] VITALS (7 sets, daily range): BP systolic 104–135; BP diastolic 58–78; PULSE 81–91; RESP 17–19; TEMP 98–99.2; O2SAT 94–97
[2024-10-02 06:33] LABS: Albumin 4.2 g/dL (3.2-4.8); Anion Gap 6 (5-15); BUN/Creatinine Ratio 9.6 (10.0-20.0); Basophils # (auto) 0 10 ^3/uL (0-0.2); Basophils % (auto) 0.1 % (0.0-2.0); Blood Urea Nitrogen 11 mg/dL (9-23); Calcium 9.5 mg/dL (8.7-10.4); Carbon Dioxide 25 mmol/L (20-31); Chloride 106 mmol/L (98-107); Eosinophils # (auto) 0 10 ^3/uL (0-0.8); Eosinophils % (auto) 0.1 % (0.0-7.0); Glucose 95 mg/dL (74-106); Hematocrit 44.1 % (41.0-53.0); Hemoglobin 15.2 g/dL (13.5-17.5); Lymphocytes # (auto) 1.8 10 ^3/uL (0.4-5.4); Lymphocytes % (auto) 16.1 % (10.0-50.0); Mean Corpuscular Hgb Conc. 34.4 g/dL (32.0-36.0); Mean Corpuscular Volume 87.2 fL (80.0-100.0); Monocytes # (auto) 1.3 10 ^3/uL (0-1.3); Monocytes % (auto) 12.1 % (0.0-12.0); Neutrophils # (auto) 7.9 10 ^3/uL (1.6-8.6); Neutrophils % (auto) 71.6 % (37.0-80.0); Nucleated Red Blood Cells % 0.2 %; Platelet Count (auto) 249 10^3/uL (140-450); Red Blood Cells 5.06 10^6/uL (4.5-5.90); Red Cell Distribution Width 13.3 % (11.8-14.3); Sodium 137 mmol/L (136-145)
[2024-10-02 06:34] LABS: Bilirubin, Total 0.9 mg/dL (0.2-1.0); Total Protein 7.1 g/dL (5.7-8.2)
[2024-10-02 06:43] LABS: Alanine Aminotransferase 85 U/L (7-40); Alkaline Phosphatase 41 U/L (46-116); Aspartate Aminotransferase 245 U/L (13-40)
[2024-10-02] MEDS: EMPAGLIFLOZIN 10 MG TAB PO SCH (09:38)
[2024-10-02] MEDS ORDERED: SACU1TAB PO (12:37)
[2024-10-02] MEDS ORDERED: SPIR25TA PO (12:37)
[2024-10-02] MEDS ORDERED: ATOR20TA50 PO (12:37)
[2024-10-02] MEDS ORDERED: CLOP75TA70 PO (12:37)
[2024-10-02] MEDS ORDERED: ASPI-325 PO (12:37)
[2024-10-02] MEDS ORDERED: MET25T PO (12:37)
[2024-10-02] MEDS ORDERED: EMPA1TAB PO (12:37)
--- NOTE | 2024-10-02 12:57 | DVHDS2 ---
Discharge Summary Date of Admission Sep 30, 2024 at 17:10 Date of Discharge: Oct 02, 2024 Admitting Diagnosis STEMI Wounds: None Labs/Diagnostic Data: Laboratory Results Test 10/02/24 04:50 10/01/24 03:41 09/30/24 21:15 09/30/24 19:01 White Blood Count 11.0 10^3/uL (4.4-10.8) Red Blood Count 5.06 10^6/uL (4.5-5.90) Hemoglobin 15.2 g/dL (13.5-17.5) Hematocrit 44.1 % (41.0-53.0) Mean Corpuscular Volume 87.2 fL (80.0-100.0) Mean Corpuscular Hemoglobin 30.0 pg (28.0-32.0) Mean Corpuscular Hemoglobin Concent 34.4 g/dL (32.0-36.0) Red Cell Distribution Width 13.3 % (11.8-14.3) Platelet Count 249 10^3/uL (140-450) Mean Platelet Volume 9.2 fL (6.9-10.8) Neutrophils (%) (Auto) 71.6 % (37.0-80.0) Lymphocytes (%) (Auto) 16.1 % (10.0-50.0) Monocytes (%) (Auto) 12.1 % (0.0-12.0) Eosinophils (%) (Auto) 0.1 % (0.0-7.0) Basophils (%) (Auto) 0.1 % (0.0-2.0) Neutrophils # (Auto) 7.9 10 ^3/uL (1.6-8.6) Lymphocytes # (Auto) 1.8 10 ^3/uL (0.4-5.4) Monocytes # (Auto) 1.3 10 ^3/uL (0-1.3) Eosinophils # (Auto) 0 10 ^3/uL (0-0.8) Basophils # (Auto) 0 10 ^3/uL (0-0.2) Nucleated Red Blood Cells 0.2 % Sodium Level 137 mmol/L (136-145) Potassium Level 4.0 mmol/L (3.5-5.1) Chloride Level 106 mmol/L (98-107) Carbon Dioxide Level 25 mmol/L (20-31) Anion Gap 6 (5-15) Blood Urea Nitrogen 11 mg/dL (9-23) Creatinine 1.14 mg/dL (0.700-1.30) Glomerular Filtration Rate Calc 85 mL/min (>90) BUN/Creatinine Ratio 9.6 (10.0-20.0) Serum Glucose 95 mg/dL (74-106) Calcium Level 9.5 mg/dL (8.7-10.4) Total Bilirubin 0.9 mg/dL (0.2-1.0) Aspartate Amino Transferase (AST) 245 U/L (13-40) Alanine Aminotransferase (ALT) 85 U/L (7-40) Alkaline Phosphatase 41 U/L (46-116) Total Protein 7.1 g/dL (5.7-8.2) Albumin 4.2 g/dL (3.2-4.8) Hemoglobin A1c 5.8 % A1C (<5.7) Troponin I High Sensitivity > 94491 ng/L (</=54) Fibrinogen 388 mg/dL (177-375) Triglycerides Level 131 mg/dL (< 150) Cholesterol Level 131 mg/dL (< 200) LDL Cholesterol 100 mg/dL (< 100) HDL Cholesterol 26 mg/dL (40-59) Thyroid Stimulating Hormone (TSH) 2.60 uIU/mL (0.55-4.78) Test 09/30/24 14:40 Prothrombin Time 11.2 sec (9.3-11.8) Prothrombin Time INR 1.06 (0.9-1.15) Activated Partial Thromboplast Time 25.1 SEC (24.5-34.5) Magnesium Level 1.9 mg/dL (1.6-2.6) B-Type Natriuretic Peptide 22.31 pg/mL (0-100) Other Laboratory Tests 10/02/24 04:50 Brief Hx & Hospital Course: This is a 39 YO male who presented with acute chest pain with significantly elevated troponins and found to be in acute ST elevation myocardial infarction. Patient was taken straight from ER to cath labs and had cardiac angiogram with thrombectomy of the left anterior descending artery with 3 stent placements. Patient overall had a successful procedure with good anterior flow and had no intraoperative complications. Patient was kept in the hospital post stenting overnight for monitoring. Patient will need to continue double antiplatlet therapy with ASA and Plavix for one year. Patient was also placed on Lipitor 40mg PO daily with LDL of 100. Patient on Echo was found to have cardiomyopathy with severe hypokinesis of the LAD territory with LVEF of 30-35%. Patient will be discharged on Entresto, Aldacton, and Metoprolol prescriptions for cardiac protection per cardiology recommendations. 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 Consults/Reason for consult Dr. Lieberamn, Cardiology Operations or Procedures Cardiac Angioplasty with thrombectomy and 3 stent placement to LAD Condition at Discharge: Good Final Diagnosis/Problems List Acute ST-elevation myocardial infarction. Cardiomyopathy with LVEF of 30-35% S/p Cardiac angioplasty, thrombectomy, and 3 stents to the LAD. Secondary Diagnosis: Obesity Discharge Disposition: Home Discharge Instruct/Medications Diet: Cardiac 2g Na,low cholest Activity: No Restrictions, As Tolerated Follow Up/Referral: PCP Follow up in 7-10 days Cardiology Follow up in the next 7-14 days Patient to monitor blood pressures at home and keep a log to present to his phsyians on his follow ups. Medications: ASA EC 81mg PO Daily Plavix 75mg PO daily Lipitor 40mg PO daily Metoprolol 12.5mg PO BID Enteresto 24/26mg 1/2 tab PO daily Aldactone 25mg PO Daily Jardiance 10mg PO daily Discharge Statement: "Patient was advised to return to the ER or call 911 if any headaches, dizziness, shortness of breath, chest pain, abdominal pain, bleeding, fevers, or worsening of medical condition. Patient was counseled about treatment plan, medications, possible side effects, patientverbalized understanding. All questions were answered to the best of my ability. This discharge took greater then 30 minutes in planning, reviewing documentation, counseling the patient, and discussing with other team members." ASSESSMENT ASSESSMENT Assessment Acute ST-elevation myocardial infarction. Successful angioplasty, thrombectomy and stenting of the LAD. AMERICA BHATIA MD Oct 02, 2024 12:57
[2024-10-03 18:05] LABS: Dilute Prothrombin Time(dPT) 42.9 sec (0.0-47.6); PTT-LA 23.7 sec (0.0-43.5); Protein S Antigen Free 88 % (61-136); Proten S Antigen Total 92 % (60-150); Thrombin Time 21.4 sec (0.0-23.0); dPT Confirm Ratio 1.07 Ratio (0.00-1.34); dRVVT 35.1 sec (0.0-47.0)
[2024-10-03 20:06] LABS: Lupus Interpretation Comment: (.)
== END 2024-10-02 15:10 | disposition home or self-care (01) | DRG 321 ==
LOC: EDBD 14:31 → ER 14:31 → TELE 16:52 → UNDOADMIN 16:52 → TELE 17:10 → CATH ICU 17:50 → TELE-EAST 10-01 08:00
PROVIDERS: ADMIT Internal Medicine; ATTEND Internal Medicine
PROC: 027035Z Dilation of Coronary Artery, One Artery with Two Drug-eluting Intraluminal Devices, Percutaneous Approach (ICD-10-PCS; principal; 2024-09-30)
PROC: 4A023N7 Measurement of Cardiac Sampling and Pressure, Left Heart, Percutaneous Approach (ICD-10-PCS; 2024-09-30)
PROC: B211YZZ Fluoroscopy of Multiple Coronary Arteries using Other Contrast (ICD-10-PCS; 2024-09-30)
PROC: B215YZZ Fluoroscopy of Left Heart using Other Contrast (ICD-10-PCS; 2024-09-30)
PROC: 02C13ZZ Extirpation of Matter from Coronary Artery, Two Arteries, Percutaneous Approach (ICD-10-PCS; 2024-09-30)
PROC: B241ZZ3 Ultrasonography of Multiple Coronary Arteries, Intravascular (ICD-10-PCS; 2024-09-30)
PROC: 5A2204Z Restoration of Cardiac Rhythm, Single (ICD-10-PCS; 2024-09-30)
DX: I21.09 ST elevation (STEMI) myocardial infarction involving other coronary artery of anterior wall (principal); I50.21 Acute systolic (congestive) heart failure; D68.59 Other primary thrombophilia; Z68.42 Body mass index [BMI] 45.0-49.9, adult; I25.5 Ischemic cardiomyopathy; R79.89 Other specified abnormal findings of blood chemistry; E66.01 Morbid (severe) obesity due to excess calories; E78.5 Hyperlipidemia, unspecified; I11.0 Hypertensive heart disease with heart failure; Z86.718 Personal history of other venous thrombosis and embolism; Z82.49 Family history of ischemic heart disease and other diseases of the circulatory system; Z79.01 Long term (current) use of anticoagulants
CPT/HCPCS: 36415; 71045; 80048; 80053; 80061; 81241; 83036; 83735; 83880; 84443; 84484; 85025; 85302; 85305; 85306; 85384; 85610; 85613; 85670; 85705; 85730; 85732; 93005; 93306; 93970; 99152; 99291; C1874; C1887; G0378; J2250; Q9967